=== PATIENT | male | born 1960 | race Caucasian/White ===

== ENCOUNTER 2018-02-21 20:42 | Emergency (ER) | payer OTHER ==
[~2018-02-21] VITALS: Ht 182.9 cm; Wt 90.7 kg
[~2018-02-21 20:42] MED LIST: ALEVE220 M1 PO; LIPITOR10 MG PO; NICOTINE TRANSD21 M1 TD; OMEPRAZOLE 20 M20 M1 PO
[2018-02-21 20:55] VITALS: BP 118/60
[2018-02-21] MEDS ORDERED: FLEXERIL PO (21:10)
[2018-02-21] MEDS ORDERED: IBUPROFEN 800800 MG PO (21:10)
[2018-02-21] MEDS ORDERED: HYDROCODON-ACE1 EAC7 PO (21:10)
== END 2018-02-21 21:17 | disposition home or self-care (01) ==
LOC: M.ERS 20:42
DX: S16.1XXA Strain of muscle, fascia and tendon at neck level, initial encounter (principal); F17.210 Nicotine dependence, cigarettes, uncomplicated; V89.2XXA Person injured in unspecified motor-vehicle accident, traffic, initial encounter; Y93.89 Activity, other specified; Y92.89 Other specified places as the place of occurrence of the external cause; Y99.8 Other external cause status